=== PATIENT | female | born 1955 | race Caucasian/White ===

== ENCOUNTER 2021-06-17 08:33 | Observation (INO) ==
--- NOTE | 2021-05-14 08:54 | PAT Medication Instructions ---
Medication Instructions Date of Service May 14, 2021 Home Medications Medication Instructions Recorded Synthroid 112 mcg tablet 112 mcg PO DAILY #30 tab NS 12/31/20 Synthroid 100 mcg tablet 100 mcg PO DAILY #30 tab NS 02/27/21 Synthroid 112 mcg tablet 112 mcg PO DAILY atorvastatin 20 mg tablet 20 mg PO HS [id number] 333 mg-133 mg-5 mg tablet 1 tab PO DAILY cholecalciferol (vitamin D3) 25 mcg (1,000 unit) capsule 25 mcg PO DAILY suvorexant 20 mg tablet 20 mg PO HS Synthroid 100 mcg tablet 100 mcg PO DAILY fluoxetine [Prozac] 40 mg PO QAM DO NOT take the morning of surgery [id number] 333 mg-133 mg-5 mg tablet 1 tab PO DAILY cholecalciferol (vitamin D3) 25 mcg (1,000 unit) capsule 25 mcg PO DAILY Take morning of surgery With a small sip of water, OTHERWISE NOTHING TO EAT OR DRINK AFTER MIDNIGHT: Synthroid 112 mcg tablet 112 mcg PO DAILY Synthroid 100 mcg tablet 100 mcg PO DAILY fluoxetine [Prozac] 40 mg PO QAM Take evening before surgery atorvastatin 20 mg tablet 20 mg PO HS suvorexant 20 mg tablet 20 mg PO HS Other Notes If you have any questions please call us at [phone] or [phone] or [phone] or [phone]
--- NOTE | 2021-05-19 12:50 | Anesthesiology Consultation ---
Date of Service May 19, 2021 Assessment & Plan (1) Encounter for pre-operative examination: COVID screening: Per assessment on 05/19: Travel screen negative x 2+ weeks. No known COVID-19 positive contacts or current COVID-19 related symptoms. Patient vaccinated. Surgeon arranging preop COVID testing. Awaiting results. Chart Review Chart Review: Acceptable Risk for Surgery (pending surgeon-ordered PCP clearance) and Patient seen in Pre Admission Testing Teaching & Discussion Pre-Anesthesia Teaching/Discussion Notes: Instructed NPO after midnight before surgery,except medications with 15 cc of water. Medication instructions provided according to the PAT guidelines. History Surgery Operation Date: 06/17/21 08:40 Proposed Procedures p Left Total Knee Arthroplasty - Ricky Olsen DO Height/Weight Height: 5 ft 7 in Weight: 102.1 kg Allergies Allergy/AdvReac Type Severity Reaction Status Date / Time latex Allergy Intermediate Blisters/ra Verified 04/30/21 11:17 sh erythromycin base Allergy Mild Rash Verified 04/30/21 11:17 Penicillins Allergy Mild Rash Verified 05/19/21 12:48 levofloxacin [From Levaquin] AdvReac Unknown Ankles Verified 05/19/21 13:19 "ache" Medications Home Medications Medication Instructions Recorded Confirmed Last Taken Synthroid 112 mcg tablet 112 mcg PO DAILY #30 tab NS 12/31/20 02/26/21 Unknown atorvastatin 20 mg tablet 20 mg PO HS 12/31/20 04/30/21 Unknown ymdsrsn-gpucbncwm-[id number] 333 mg-133 1 tab PO DAILY tab 12/31/20 04/30/21 Unknown mg-5 mg tablet cholecalciferol (vitamin D3) 25 25 mcg PO DAILY 12/31/20 04/30/21 Unknown mcg (1,000 unit) capsule suvorexant 20 mg tablet 20 mg PO HS 02/26/21 04/30/21 Unknown Synthroid 100 mcg tablet 100 mcg PO DAILY #30 tab NS 02/27/21 04/30/21 Unknown fluoxetine [Prozac] 40 mg PO QAM 04/30/21 04/30/21 Unknown Past Medical History Medical History Arthritis Depression History of anemia No known hx of blood transfusions History of kidney stones No intervention needed Hyperlipidemia Hypothyroidism Insomnia Migraine Mitral valve prolapse Dx 1983 (per patient told "mild" MVP, no echo since) Obesity Restless leg syndrome Spondylosis Temporomandibular joint disorder + cracking, no locking Exercise / Class Metabolic Activity II 4-5 Yardwork/Stairs/Walk up hill (one FS (no CP, no SOB)) Past Family History Family History Other No family history of adverse response to anesthesia Past Surgical History Surgical History H/O foot surgery Right foot plantar fasciitis repair H/O umbilical hernia repair History of arthroscopy Left knee History of colonoscopy History of salpingo-oophorectomy Left (mass/benign) History of thyroidectomy, total Benign (goiter) History of tonsillectomy and adenoidectomy [place] teeth removed Past Anesthesia History No Family Hx of Anesthesia Complications and Other (Awareness with foot surgery) History of PONV No Hx of PONV and Hx of Motion Sickness Social History Smoking Status: Never smoker Do You Dip or Chew Tobacco: No Hx Alcohol Use: No Hx Substance Use: No substance use type: does not use Review of Systems Patient denies chest pain, shortness of breath, dyspnea on exertion, fever, chills, cough, wheezing, palpitations. Physical Exam Vital Signs VITALS BP 122/80 P 82 TEMP 98.8 SP02 97%RA RESP 16 PHYSICAL Full cervical extension range of motion (+ cervicalgia with extension). Full TMJ range of motion. TMD 3 finger breaths Mallampati Score 3 Dentition: intact, + crowns Lungs: clear throughout to auscultation Cardiac: regular rate and rhythm, no murmurs noted Spine: normal Carotid arteries: negative bruit Extremities: no edema Lab Results Anesthesia Preop Results Results Anesthesia Widget: WBC 6.94 K/uL (4.8-10.8) 05/19/21 Hgb 12.1 g/dL (12.0-16.0) 05/19/21 Hct 36.3 % (37-47) L 05/19/21 Plt 280 K/uL (130-400) 05/19/21 Na 140 mmol/L (136-145) 05/19/21 K 4.1 mmol/L (3.5-5.1) 05/19/21 Cl 106 mmol/L (98-107) 05/19/21 CO2 32 mmol/L (21-32) 05/19/21 BUN 14 mg/dl (7-18) 05/19/21 Creat 0.93 mg/dl (0.6-1.2) 05/19/21 Glucose Level 150 mg/dl (70-99) H 05/19/21 PT 10.3 Seconds (9.0-12.0) 05/19/21 PTT 23.9 Seconds (21.0-31.0) 05/19/21 INR 1.0 (0.9-1.1) 05/19/21 HA1c 6.0 % (4.5-5.6) H 05/19/21 Urine Color Yellow 05/19/21 Urine Appearance Clear (Clear) 05/19/21 Urine pH 6.0 (4.5-7.5) 05/19/21 Urine Specific [place] 1.014 (1.000-1.030) 05/19/21 Urine Protein Negative (Negative) 05/19/21 Urine Glucose (UA) Negative (Negative) 05/19/21 Urine Ketones Negative (Negative) 05/19/21 Urine Blood Negative (Negative) 05/19/21 Urine Nitrite Negative (Negative) 05/19/21 Urine Bilirubin Negative (Negative) 05/19/21 Urine Urobilinogen Negative (Negative) 05/19/21 Urine Leukocyte Esterase Trace (Negative) H 05/19/21 Urine WBC (Auto) 1-5 /hpf (0-5) 05/19/21 Urine RBC (Auto) 0-4 /hpf (0-4) 05/19/21 Urine Hyaline Casts (Auto) 1-5 /lpf (0-5) 05/19/21 Urine Epithelial Cells (Auto) 20-30 /lpf (0-5) H 05/19/21 Urine Bacteria (Auto) Negative (Negative) 05/19/21 Blood Type A Negative 05/19/21 Antibody Screen NEGATIVE 05/19/21 Testing Electrocardiogram Date: 05/19/21 Normal sinus rhythm at [address] abnormality. No significant change compared to 02/19/2015 per certified composites technician review. Chest X-Ray Date: 05/19/21 FINDINGS: PA and lateral chest radiographs are obtained. No prior studies are available for comparison at the time of dictation. The heart is top normal for projection noting atherosclerotic calcification of the thoracic aorta. There is mild elevation of the right hemidiaphragm and bibasilar atelectasis. There are scattered calcified granulomas. The lungs and pleural spaces are otherwise clear. There is no pneumothorax. The skeletal structures are osteopenic. The bony thorax appears intact. Degenerative change is noted in the thoracic spine. IMPRESSION: No active disease in the chest.
--- NOTE | 2021-06-01 15:03 | History & Physical Report ---
Date of Service June 01, 2021 date of surgery: 06/17/21 Procedure: Left Total Knee Arthroplasty Assessment & Plan (1) Arthritis of knee, left: Plan: Risks and benefits discussed, has failed cons measures including visco, cortisone as well as PO prednisone. Her xrays show advanced DJD with joint space narrowing, osteophyte and subchondral sclerosis. uses a cane at home, will schedule for a left TKA at [facility] with home health PT. The risks and benefits have been discussed including, but not limited to, risk of infection, nerve injury, stiffness, loss of motion, failure to improve, etc. Reasonable outcomes and options of treatment were discussed. An explanation of appropriate alternatives to the procedure that may be advantageous were discussed and their risks and benefits, as well as the risks and benefits of not proceeding with treatment. I offered to answer any additional inquiries concerning the treatment involved. All the patient's questions were answered. The patient is agreeable, understanding of the treatment plan and alternatives, and wishes to proceed with the treatment plan. History of Present Illness Chief Complaint: left knee pain Primary Care Provider: Basilio Dowell MD Julissa is a 65 year old female that complains of left knee pain, presents for pre-op evaluation prior to a left total knee replacement by Dr Olsen at [facility]. she complains of pain, decreased range of motion, instability and stiffness in her left knee. Currently the patient states that the symptoms are moderate- severe and rated as 6/10. The pain is described as aching, sharp and throbbing. The symptoms are aggravated by ascending stairs, daily activities, first steps while awake walking. Prior NSAIDs include IBU and Aleve. she has been treated with previous visco and cortisone injections in the past without much relief. Allergies Allergy/AdvReac Type Severity Reaction Status Date / Time latex Allergy Intermediate Blisters/ra Verified 04/30/21 11:17 sh erythromycin base Allergy Mild Rash Verified 04/30/21 11:17 Penicillins Allergy Mild Rash Verified 05/19/21 12:48 levofloxacin [From Levaquin] AdvReac Unknown Ankles Verified 05/19/21 13:19 "ache" Home Medications Medication Instructions Recorded Confirmed Type Synthroid 112 mcg tablet 112 mcg PO DAILY #30 tab NS 12/31/20 02/26/21 Rx (levothyroxine) atorvastatin 20 mg tablet 20 mg PO HS 12/31/20 04/30/21 History lrgrogn-vaynxufjw-orgr 333 mg-133 1 tab PO DAILY tab 12/31/20 04/30/21 History mg-5 mg tablet cholecalciferol (vitamin D3) 25 25 mcg PO DAILY 12/31/20 04/30/21 History mcg (1,000 unit) capsule suvorexant 20 mg tablet (Belsomra) 20 mg PO HS 02/26/21 04/30/21 History Synthroid 100 mcg tablet 100 mcg PO DAILY #30 tab NS 02/27/21 04/30/21 Rx (levothyroxine) fluoxetine 40 mg capsule (Prozac) 40 mg PO QAM 04/30/21 04/30/21 History Past Med/Surg History Medical History Arthritis Depression History of anemia No known hx of blood transfusions History of kidney stones No intervention needed Hyperlipidemia Hypothyroidism Insomnia Migraine Mitral valve prolapse Dx 1983 (per patient told "mild" MVP, no echo since) Obesity Restless leg syndrome Spondylosis Temporomandibular joint disorder + cracking, no locking Surgical History H/O foot surgery Right foot plantar fasciitis repair H/O umbilical hernia repair History of arthroscopy Left knee History of colonoscopy History of salpingo-oophorectomy Left (mass/benign) History of thyroidectomy, total Benign (goiter) History of tonsillectomy and adenoidectomy [place] teeth removed Family History Other No family history of adverse response to anesthesia Social History Smoking Status: Never smoker Second Hand Exposure: Yes ( A CHILD); Hx Alcohol Use: No Hx Substance Use: No Preferred Language: Jordanian Rfid Developer Required: No Beliefs That Will Affect Care: None Current Living Situation: Family Current Living Situation Comment: AND SON Feels Safe at Home: Yes Assistive Devices: Glasses Review of Systems Review of Systems: All systems reviewed & are unremarkable except as noted in HPI & below Constitutional: no fever, no chills and no sweats Respiratory: no cough and no dyspnea Cardiovascular: no chest pain, no dyspnea and no orthopnea Gastrointestinal: no abdominal pain, no nausea and no vomiting Musculoskeletal: as per Subjective / HPI Physical Exam Physical Exam: HT: 5ft 7in WT: 102.1kg Constitutional: WD/WN, vitals as above no acute distress Respiratory: normal respiratory effort, lungs clear to auscultation no respiratory distress, no labored breathing and does not use accessory muscles Cardiovascular: RRR, no murmur, no edema Gastrointestinal (Abdomen): normal bowel sounds, soft, nontender, no hepatosplenomegaly Musculoskeletal: Knee: + knee abnormal to inspection (LEFT KNEE), + effusion (+1 effusion), + limited ROM of knee (ROM 0/3/110), + knee ROM with crepitation, + joint line tenderness (medial joint line) and + Eda's sign positive; no deformity, no skin erythema, no ecchymosis, no valgus laxity, no varus laxity, anterior drawer test negative, Sixto's sign negative and pivot shift test negative Results & Data Results & Data ([facility]) Diagnostic Findings Left Knee X-ray: left knee series confirm advanced degenerative changes to the left knee, greatest medial compartments and patellofemoral joint, showing joint space narrowing, osteophyte formation and subchondral sclerosis. no acute bony pathology noted.
[~2021-06-17 08:33] MED LIST: ACETAMINOPHEN 500 MG TAB PO SCH; BUPIVACAINE 0.25% 30 ML VIAL ONE; BUPIVACAINE 0.5 % 5 MG/1 ML PF 10ML VIAL ONE; CeleBREX 200 MG CAP PO SCH; FAMOTIDINE 20 MG TAB PO SCH; GABAPENTIN 300 MG CAP PO SCH; LR 500ML BOLUS, THEN 15ML/HR IV SCH; METOCLOPRAMIDE HCL 10 MG TABLET PO SCH; ROPIVACAINE 0.5% HCL/PF 150 MG, BUPIVACAINE 0.75% MPF 20 ML, EPINEPHrine 30MG/30ML (OR ... INSTIL SCH; Scopolamine 1 MG TDSY TD SCH; TRANEXAMIC ACID 1,000 MG **IV Intra-op IV SCH; TRANEXAMIC ACID 1,000 MG **IV Pre-op IV SCH; VANCOMYCIN HCL 1,500 MG in SODIUM CHLORIDE 0.9% 500 ML IV SCH; dexAMETHasone 4 MG TAB PO SCH
--- NOTE | 2021-06-17 09:41 | History & Physical Bridge Note ---
Date of Service June 17, 2021 History & Physical Bridge Note I have examined the patient, reviewed the History & Physical and in the interval since the performance of the History & Physical I have noted the following changes of clinical significance: no changes noted
[2021-06-17] MEDS ORDERED: MIDAZOLAM HCL 1 MG/ML 2ML VIAL ONE (09:43)
[2021-06-17] MEDS ORDERED: fentaNYL citrate 100 MCG/2 ML VIAL ONE (09:43)
[2021-06-17] MEDS ORDERED: ATROPINE SULFATE 0.1 MG/ML 10ML SYR IV PRN (10:38)
[2021-06-17] MEDS ORDERED: ePHEDrine sulfate 50 MG/ML AMP IV PRN (10:38)
[2021-06-17] MEDS ORDERED: ORTHO JOINT ANESTHETIC ONE (11:15)
[2021-06-17] MEDS ORDERED: PROPOFOL IV EMULSION 10 MG/ML 20 ML VIAL IV ONE ×2 (12:07→12:15)
--- NOTE | 2021-06-17 13:10 | Operative Report ---
Post Operative Report Pre & Post Diagnosis Operation Date: 06/17/21 10:15 Pre-Op Diagnosis: Arthritis of Left Knee Post-Op Diagnosis: Arthritis of Left Knee I identified the patient and participated in the time-out.: Yes Procedure Operation Date: 06/17/21 10:15 Actual Procedures p Left Total Knee Arthroplasty(Left) utilizing [employer] persona size femur 8 tibia F poly-10 mm patella 28 oval- Ricky Olsen DO Surgeon Ricky Olsen DO Delivery Assistant Isak MOTT Estimated Blood Loss 5 Findings Consistent with Post-Op Diagnosis Patient presents with severe end-stage DJD left knee no response to conservative management she has varus alignment subchondral sclerosis marginal osteophytes 5 degree flexion contracture eburnated [id number] with a moderate to large effusion Specimens Bone and cartilage Drains Medium bore Hemovac Anesthesia Type MAC Spinal Regional Complications none Disposition Accompanied Patient To Recovery: No Disposition: Recovery Room Indications Patient presents with severe end-stage DJD left knee no response to conservative management clinic physical therapy anti-inflammatories relative rest activity modification corticosteroid injection viscosupplementation above intraoperative findings are noted. Description of Procedure After proper prepping and draping of the left lower extremity anterior midline incision was made over the region of the extensor extensor mechanism after meticulous hemostasis was obtained and maintained in subcutaneous tissues a medial parapatellar incision was made The patella was subluxed lateralward the medial lateral gutter were cleaned from any hypertrophic synovitis and scar tissue of the distal femoral block was placed and the distal femoral osteotomy cut was made subsequently the chamfers anterior and posterior osteotomy cuts were made utilizing the 4-in-1 block the tibia was subsequently subluxed anteriorward medial and ateral meniscal remnants were excised in their entirety remnants of the anterior and posterior cruciate ligaments were excised in their entirety excellent exposure of the proximal tibia was obtained the tibial osteotomy guide was placed on the proximal tibial osteotomy cut was made once again the knee was irrigated with copious amounts of sterile saline solution the patella was subsequently everted lateralward thickened scar tissue around the patella was removed the patella was subsequently cut utilizing a freehand technique and was drilled prepared for final preparation and placement of patella socially flexion-extension gaps were checked and the equal and symmetric trials were placed to the appropriate femoral and tibial trials with poly-spacer being placed for equal flexion and extension gaps and full range of motion including extension to 0 and flexion to 140 the trial components after having been taken to recovery range of motion was subsequently removed meticulous h emostasis was obtained and maintained subsequently a knee block injection of joint cocktail including ropivacaine 0.5% 150 mg. Bupivacaine 0.5% epinephrine 1-200,030 mL's toradol 30 mg dexamethasone 4 mg ketamine 10 mg clonidine 100 micrograms normal saline solution 30 mg was infiltrated into the soft tissues of the posterior knee medial lateral gutters and periosteal synovium special attention was paid to protect neurovascular structures at all times subsequently trial components having been removed the knee was irrigated with sterile saline solution. debris was removed the proximal tibia was subsequently prepared and was made ready for the placement of the tibial component tibial component was also cemented and tamped into position the femoral component was subsequently placed and cemented in the position the patellar component was subsequently cemented in position because hemostasis once again obtained and maintained wound having been thoroughly irrigated with debridement and debridement lavage was performed as well as a medial parapatellar incision closed with #1 Vicryl in interrupted fashion subcutaneous was closed with #2 Vicryl skin was closed with skin clips. PA-C was necessary for prepping and drapping as well as wound closure of deep fascia Sub cutaneous tissue and skin and was necessary for the case. A sterile compressive dressing was placed patient was taken to recovery in stable condition of report dictated by Raúl I attest to the content of the Intraoperative Record and any orders documented therein. Any exceptions are noted below. I attest to the content of the Intraoperative Record and any orders documented therein. Any exceptions are noted below.
--- NOTE | 2021-06-17 14:10 | Anesthesiology Progress Note ---
Date of Service June 17, 2021 Anesthesia Post Procedure Vital Signs Vital Signs: Temp Pulse Pulse Resp BP Pulse Ox 06/17/21 14:00 84 19 147/74 H 98 06/17/21 13:52 36.9 C 87 14 129/67 98 06/17/21 08:50 36.9 C 71 18 149/87 H 98 Pain Intensity Left Knee: Pain Intensity: 8 Transfer of Care Handoff Completed per policy Notes Mental Status: alert / awake / arousable and participated in evaluation Nausea / Vomiting: adequately controlled Pain: adequately controlled Airway Patency, RR, SpO2: stable & adequate BP & HR: stable & adequate Hydration State: stable & adequate Neuraxial Anesthesia: was administered and sensory block is resolving Anesthetic Complications: no major complications apparent and Pt Satisfied with anesthetic care
--- NOTE | 2021-06-17 14:20 | XRay Report ---
XR knee LT 1 or 2V routine HISTORY: 65 years-old Female Surgical Post Op left knee total joint arthroplasty COMPARISON: None TECHNIQUE: 2 views of the left knee FINDINGS: Left knee total joint arthroplasty and patella resurfacing. Expected postoperative soft tissue swelli ng with deep tissue air and surgical drainage catheters. No acute fracture or unexpected opaque forei gn body. IMPRESSION: Left knee total joint arthroplasty with expected postoperative changes. ACT 112: Negative or not required by law. The above report was generated using voice recognition software. It may contain grammatical, syntax o r spelling errors. Electronically signed by: Louis Hong M.D. 06/17/2021 2:19 PM
[2021-06-17] MEDS ORDERED: Scopolamine CHECK PATCH PLACEMENT SCH (16:00)
[2021-06-17] MEDS ORDERED: ONDANSETRON INJ 2 MG/ML 2 ML VIAL IV PRN (16:32)
[2021-06-17] MEDS ORDERED: NALOXONE HCL 0.4 MG/1 ML VIAL/CARP IV PRN (16:32)
[2021-06-17] MEDS ORDERED: diphenhydrAMINE Capsule 25 MG CAP PO PRN (16:32)
[2021-06-17] MEDS ORDERED: MAGNESIUM HYDROXIDE SUSP 30 ML UDC PO PRN (16:32)
[2021-06-17] MEDS ORDERED: bisacodyL 10 MG SUPP PR PRN (16:32)
[2021-06-17] MEDS ORDERED: METOCLOPRAMIDE HCL INJ 5 MG/ML 2 ML VIAL IV PRN (16:32)
[2021-06-17] MEDS ORDERED: HYDROmorphone INJ 1 MG/ML SYRINGE IV PRN (16:32)
[2021-06-17] MEDS ORDERED: oxyCODONE HCL IR 5 MG TAB (IMMEDIATE RELEASE) PO PRN (16:32)
[2021-06-17] MEDS ORDERED: SUMAtriptan succinate 100 MG TAB PO PRN (16:38)
[2021-06-17] MEDS: SODIUM CHLORIDE 0.9% 1000ML 1,000 ML IV SCH (17:33)
[2021-06-17] MEDS: ACETAMINOPHEN 500 MG TAB PO SCH ×2 (17:40→21:14)
[2021-06-17] MEDS: KETOROLAC TROMETHAMINE 15 MG/ML VIAL IV SCH (17:40)
[2021-06-17] MEDS: CLINDAMYCIN 600 MG in DEXTROSE 5% 50 ML IV SCH (18:30)
[2021-06-17] MEDS ORDERED: SENNA 8.6 MG TAB PO SCH (21:00)
[2021-06-17] MEDS ORDERED: ATORVASTATIN 20 MG TAB PO SCH (21:00)
[2021-06-17] MEDS: ASPIRIN 81 MG ECTAB PO SCH (21:12)
[2021-06-17] MEDS: DOCUSATE SODIUM 100 MG CAP PO SCH (21:14)
[2021-06-18] MEDS: KETOROLAC TROMETHAMINE 15 MG/ML VIAL IV SCH ×3 (00:18→11:06)
[2021-06-18] MEDS: CLINDAMYCIN 600 MG in DEXTROSE 5% 50 ML IV SCH (01:46)
[2021-06-18] MEDS: SODIUM CHLORIDE 0.9% 1000ML 1,000 ML IV SCH (05:08)
[2021-06-18 05:56] LABS: Hematocrit (blood only) 31.8 % (37-47); Hemoglobin 10.3 g/dL (12.0-16.0); Mean Corpuscular Hemoglobin 30.1 pg (25-34); Mean Corpuscular Hgb Conc 32.4 g/dL (32-36); Mean Platelet Volume 8.9 fL (7.4-10.4); Platelet Count 267 K/uL (130-400); RDW Coefficient of Variation 12.8 % (11.5-14.5); RDW Standard Deviation 43.1 fL (36.4-46.3); Red Blood Count 3.42 M/uL (4.2-5.4); White Blood Count 14.05 K/uL (4.8-10.8)
[2021-06-18] MEDS: ACETAMINOPHEN 500 MG TAB PO SCH ×2 (05:59→13:28)
[2021-06-18] MEDS ORDERED: LEVOTHYROXINE SODIUM 100 MCG TABLET PO SCH (06:30)
[2021-06-18 06:39] LABS: BUN Creatinine Ratio 20.9 (10-20); Calcium 8.6 mg/dl (8.5-10.1); Creatinine Clr Calc Pharmacy 91.4 ml/min; Est GFR (African American) 98.8 ml/min; Est GFR (Non-African American) 85.2 ml/min; Potassium 3.9 mmol/L (3.5-5.1)
--- NOTE | 2021-06-18 08:27 | Orthopedic Progress Note ---
Date of Service June 18, 2021 Assessment & Plan (1) Arthritis of knee, left: Plan: Postop day 1 PT/OT protocols. Weightbearing as tolerated. DVT prophylaxis-aspirin p.o. twice daily, SCDmerlyn, CONNOR marcelino. Pain management as written. Mild leukocytosis-patient is currently asymptomatic. Likely secondary from surgical stress and/or preoperative steroids. DC plans-patient is planning for home health services upon discharge. Admission and Anticipated Discharge Date Admission Date: June 17, 2021 Supervising Physician Co-Signing Physician Notes Patient seen and examined. Agree with TIERA Taylor's note as above. Patient is doing very well. Pain is controlled currently; she recently had a dose of Toradol. She has mobilized very well with therapy, and is already done steps this morning. Likely discharge home later today. Subjective Postop day 1 Patient is doing her bedside exercises with staff. Currently she is using the heel prop. She states that her pain is around a 6 this morning. No other complaints. Denies shortness of breath, chest pain, lightheadedness. She states she is hoping to go home today. We discussed use of her pain medications to make sure it does not get out of hand. Patient understands. Physical Exam Physical Exam: Dressings are clean, dry, and intact. Calves are soft nontender. Neurovascular is intact. Toes are mobile. She has good dorsiflexion plantarflexion of the left foot. Hemovac drainage was about 100 mL from the previous shift. Results & Data ([facility]) Vital Signs (Past 12 Hours) Vital Signs Temp Pulse Resp BP Pulse Ox 06/18/21 07:47 36.5 C 56 L 16 133/70 99 06/18/21 01:48 36.5 C 57 L 16 118/70 94 06/17/21 22:54 36.7 C 64 16 119/67 95 Laboratory Results Laboratory Results WBC 14.05 K/uL (4.8-10.8) H 06/18/21 05:19 RBC 3.42 M/uL (4.2-5.4) L 06/18/21 05:19 Hgb 10.3 g/dL (12.0-16.0) L 06/18/21 05:19 Hct 31.8 % (37-47) L 06/18/21 05:19 MCV 93.0 fL (80-100) 06/18/21 05:19 MCH 30.1 pg (25-34) 06/18/21 05:19 MCHC 32.4 g/dL (32-36) 06/18/21 05:19 RDW Std Deviation 43.1 fL (36.4-46.3) 06/18/21 05:19 RDW Coeff of Alissa 12.8 % (11.5-14.5) 06/18/21 05:19 Plt Count 267 K/uL (130-400) 06/18/21 05:19 MPV 8.9 fL (7.4-10.4) 06/18/21 05:19 Sodium 138 mmol/L (136-145) 06/18/21 05:19 Potassium 3.9 mmol/L (3.5-5.1) 06/18/21 05:19 Chloride 108 mmol/L (98-107) H 06/18/21 05:19 Carbon Dioxide 24 mmol/L (21-32) 06/18/21 05:19 Anion Gap 6.0 (3-11) 06/18/21 05:19 BUN 15 mg/dl (7-18) 06/18/21 05:19 Creatinine 0.73 mg/dl (0.6-1.2) 06/18/21 05:19 Est Cr Clr Drug Dosing 91.4 ml/min 06/18/21 05:19 Est GFR ( Amer) 98.8 ml/min 06/18/21 05:19 Est GFR (Non-Af Amer) 85.2 ml/min 06/18/21 05:19 BUN/Creatinine Ratio 20.9 (10-20) H 06/18/21 05:19 Glucose 127 mg/dl (70-99) H 06/18/21 05:19 Calcium 8.6 mg/dl (8.5-10.1) 06/18/21 05:19 COVID-19 Eval Order Covid19 [facility] 06/17/21 08:48 SARS-CoV-2, RNA, NAAT NEGATIVE (NEGATIVE) 06/17/21 08:48 Impressions Knee X-Ray 06/17/21 12:00 XR knee LT 1 or 2V routine HISTORY: 65 years-old Female Surgical Post Op left knee total joint arthroplasty COMPARISON: None TECHNIQUE: 2 views of the left knee FINDINGS: Left knee total joint arthroplasty and patella resurfacing. Expected postoperative soft tissue swelling with deep tissue air and surgical drainage catheters. No acute fracture or unexpected opaque foreign body. IMPRESSION: Left knee total joint arthroplasty with expected postoperative changes. ACT 112: Negative or not required by law. The above report was generated using voice recognition software. It may contain grammatical, syntax or spelling errors. Electronically signed by: Louis Hong M.D. 06/17/2021 2:19 PM
[2021-06-18] MEDS: ASPIRIN 81 MG ECTAB PO SCH (08:50)
[2021-06-18] MEDS: DOCUSATE SODIUM 100 MG CAP PO SCH (08:50)
[2021-06-18] MEDS ORDERED: MULTIVITAMIN TAB PO SCH (09:00)
[2021-06-18] MEDS ORDERED: FLUoxetine HCL 20 MG CAP PO SCH (09:00)
[2021-06-18] MEDS ORDERED: CHOLECALCIFEROL 1,000 UNITS 25 MCG TAB PO SCH (09:00)
--- NOTE | 2021-06-18 15:14 | Discharge Summary ---
Date of Service date of discharge: June 18, 2021 date of admission: 06-17-21 Admission HPI Per Admitting Provider Julissa is a 65 year old female that complains of left knee pain, presents for pre-op evaluation prior to a left total knee replacement by Dr Olsen at [facility]. she complains of pain, decreased range of motion, instability and stiffness in her left knee. Currently the patient states that the symptoms are moderate- severe and rated as 6/10. The pain is described as aching, sharp and throbbing. The symptoms are aggravated by ascending stairs, daily activities, first steps while awake walking. Prior NSAIDs include IBU and Aleve. she has been treated with previous visco and cortisone injections in the past without much relief. Principal Diagnosis left knee Discharge Exam Musculoskeletal left knee: NVDI, calf SNT, negative nori sign. DP palpable, able to wiggle toes/ankle movement without difficulty. dressing clean dry and intact. expected post-operative bruising noted. Discharge Data Allergies Allergy/AdvReac Type Severity Reaction Status Date / Time latex Allergy Intermediate Blisters/ra Verified 06/17/21 09:10 sh erythromycin base Allergy Mild Rash Verified 06/17/21 09:10 Penicillins Allergy Mild Rash Verified 06/17/21 09:10 levofloxacin [From Levaquin] AdvReac Unknown Ankles Verified 06/17/21 09:10 "ache" Procedures Performed Operation Date: 06/17/21 10:15 Actual Procedures p Left Total Knee Arthroplasty(Left) - Ricky Olsen DO Ordered Studies 06/17/21 05:00 US - OR guided needle placemen Routine Hospital Course (1) Arthritis of knee, left: Postop day 1 PT/OT protocols. Weightbearing as tolerated. DVT prophylaxis-aspirin p.o. twice daily, SCDsCONNOR. Pain management as written. Mild leukocytosis-patient is currently asymptomatic. Likely secondary from surgical stress and/or preoperative steroids. DC plans-patient is planning for home health services upon discharge. Total Time Total Time Spent Total Time Spent (In Minutes): 20 Discharge Plan Discharge Items Patient Disposition: Home - Home Health Services Reason For Visit: Osteoarthritis, Left Knee Discharge Diagnosis: left total knee replacement Activity: Per Instructions section Weightbearing: Left weightbearing Weightbearing Comment: WBAT with walker Non-emergency contact: Surgeon Call non-emergency contact if: you have any medication questions, your temperature is above 101, your wound has increased redness, your wound has increased drainage and your wound pain has increased Follow-up/Referrals: Basilio Dowell MD [Primary Care Provider] - Diet: Regular Addtl Attending Provider Instructions: ACTIVITY RECOMMENDATIONS: SELF CARE INSTRUCTIONS AFTER TOTAL KNEE REPLACEMENT A. You may need to continue a physical therapy program after discharge from the hospital. There are several options available to you. Your doctor will assist you in selecting the best one for you. 1. An out-patient facility 2 to 3 times a week for therapy or home therapy. 2. Continue working on all exercises taught to you in the hospital. Your goals should be to increase bending of your knee to 90 degrees and beyond and to fully straighten your knee. B. You may progress at your own pace from walking with a walker or crutches to a cane; then to no assistive devices. C. Make walking a part of your daily routine. Be up as much as comfortable with rest periods throughout the day. Rest with leg elevation is very important. Use the ice wrap frequently for the first 3-4 weeks. D. There are no restrictions on activities. You may ride in a car, shop, participate in signal supervisor and all social activities. E. Wear the long elastic stockings (CONNOR hose) 20 hours a day for 2 weeks after surgery. They can be removed several times a day for laundering and for a bath. F. You may shower, no tub baths until cleared by your doctor. SPECIAL CARE INSTRUCTIONS: VERY IMPORTANT TO READ AND REVIEW A. There are a few signs you need to watch for after you are home. Call [facility] if you notice any of the followin. Increased severe knee pain. Some pain is expected especially when you exercise. 2. Increased swelling in your leg or knee; pain or swelling of the calf muscle in either lower leg. 3. Any fluid drainage from the incision. 4. Shortness of breath or chest pain. B. Please call [facility] at if you have any concerns or questions about your operation or recovery. The doctor or his nurse will return your call promptly. C. You must take antibiotics before dental work, bladder, bowel or other surgery. Your doctor will provide you with a permanent care to carry describing this precaution. IMPORTANT: * REMEMBER TO TAKE ASPIRIN, 81 MG, TWICE DAILY FOR 4 WEEKS UNLESS OTHERWISE DIRECTED. THIS IS YOUR BLOOD THINNER. * HIGH RISK PATIENTS MAY BE PRESCRIBED A STRONGER BLOOD THINNER. THIS WILL BE PROVIDED AT DISCHARGE. * CALL IF INCREASED PAIN, REDNESS, DRAINAGE OR FEVER GREATER THAT 101. * WEAR CONNOR HOSE 20 HOURS PER DAY FOR 2 WEEKS. * CHANGE YOUR DRESSING DAILY. YOU MAY LEAVE IT TO THE OPEN AIR AT TIMES. PLEASE KEEP IT COVERED WITH A SMALL DRESSING WHEN GOING OUT AND OR PROTECTING IT FROM YOUR CLOTHES. * DERMABOND Prineo- This is a mesh tape dressing that is covered with glue. It should remain in place until the incision is properly healed, usually 10-14 days. This dressing is designed to naturally slough off. You may trim the excess mesh tape as it peels off. Incision may be briefly wet in a shower. Dry immediately by blotting with a clean, dry towel. Do not bath or swim until instructed by your doctor. Do not scratch, rub, or pick at the dressing. Do not apply any topical ointments or lotions until dressing is completely removed and/or instructed by your doctor. There may be a small piece of suture material at one end of your incision. Do not pull or trim this. If it is bothersome or catching on clothing, you may cover it with a band-aid. IF INCISION IS LEAKING THROUGH DRESSING, CALL THE OFFICE . FOLLOW UP VISIT: If appointment is not already scheduled: Please call [facility] to make a follow-up appointment for 2 weeks after your surgery at . Pending Studies at Discharge: No Stand-Alone Forms: My [facility], Opioid Pain Management, Smoking Cessation Medications and DC Order Prescriptions: New celecoxib [Celebrex] 200 mg Capsule 200 mg PO BID 14 Days Qty: 28 RF: 0 aspirin 81 mg Tablet,Delayed Release (Dr/Ec) 81 mg PO BID 30 Days Qty: 60 RF: 0 acetaminophen [Tylenol Extra Strength] 500 mg Tablet 1,000 mg PO Q8 14 Days Qty: 84 RF: 0 polyethylene glycol 3350 [Miralax] 17 gram powder in packet 17 g PO DAILY PRN (Reason: constipation) Qty: 5 RF: 0 sulfamethoxazole-trimethoprim [Bactrim DS] 800-160 mg tablet 1 tab PO Q12H Qty: 20 RF: 0 oxycodone 5 mg Tablet 5 mg PO Q4H MDD 6 PRN (Reason: pain) Qty: 30 RF: 0 Continued levothyroxine [Synthroid] 100 mcg tablet 100 mcg PO DAILY Qty: 30 RF: 0 atorvastatin 20 mg tablet 20 mg PO HS RF: 0 utyvnwl-rprnpekug-lgka 333-133-5 mg tablet 1 tab PO DAILY RF: 0 cholecalciferol (vitamin D3) 25 mcg (1,000 unit) capsule 25 mcg PO DAILY RF: 0 Belsomra 20 mg tablet 20 mg PO HS RF: 0 fluoxetine [Prozac] 40 mg Capsule 40 mg PO QAM RF: 0 Imitrex 100 mg PO DIRECTED RF: 0 Discharge Orders: Discharge Order (Routine); Ordered 06/18/21 Ordered By: Dez Garcia/Other Patient Handouts: Preventing Deep Vein Thrombosis Admission Data Admit Date/Time: 06/17/21 12:00 Attending Provider: Ricky Olsen Admit Provider: Ricky Olsen Primary Care Provider: Basilio Dowell I. Other Providers: [facility],Home Healthcare Other Interventions: Discharge Summary Assessment (RN) Last Done: 06/18/21 13:53
[2021-06-18] MEDS ORDERED: CeleBREX 200 MG CAP PO SCH (21:00)
== END 2021-06-18 15:06 | disposition home health service (06) ==
LOC: PACUINP 08:33 → ASU 08:33 → 3E 16:31
DX: Z88.1 Allergy status to other antibiotic agents; Z68.34 Body mass index [BMI] 34.0-34.9, adult; Z88.0 Allergy status to penicillin; Z79.899 Other long term (current) drug therapy; E78.5 Hyperlipidemia, unspecified; M17.12 Unilateral primary osteoarthritis, left knee; E03.9 Hypothyroidism, unspecified; E66.9 Obesity, unspecified; Z91.040 Latex allergy status; I34.1 Nonrheumatic mitral (valve) prolapse; Z20.822 Contact with and (suspected) exposure to COVID-19